=== PATIENT | male | born 1985 | race African-American/Black ===

== ENCOUNTER 2018-08-22 08:54 | Emergency (ER) | payer SELFPAY ==
[~2018-08-22] VITALS: Ht 180.3 cm; Wt 117.8 kg
[2018-08-22 09:01] VITALS: BP 190/95; PULSE 65; RESP 18; Ht 180.3 cm; Wt 117.8 kg
[2018-08-22] MEDS ORDERED: ONDANSETRON (ODT) 4 MG TAB ODT STA (09:20)
[2018-08-22] MEDS ORDERED: HYDROCODONE/APAP (5/325) TAB PO ONE (09:30)
[2018-08-22] MEDS ORDERED: NAPR-985 PO (10:11)
[2018-08-22] MEDS ORDERED: HYDR-4011 PO (10:11)
--- NOTE | 2018-08-22 10:25 | ERD ---
ER Documentation Chief Complaint Chief Complaint left shoulder pain s/p fall playing football, decrease ROM HPI 33-year-old male presenting with pain to left shoulder. Yesterday patient was playing football and he fell on his left shoulder. Hurts to move at the shoulder and has normal movement to his elbow and lower extremity. Patient is right-hand dominant. Denies any numbness or tingling to his upper left extremity. He has taken Tylenol for pain relief. medical history asthma. NKDA. Surgical history denies. Social history denies ROS All systems reviewed and are negative except as per history of present illness. Medications Home Meds Active Scripts Naproxen* (Naprosyn*) 500 Mg Tablet, 500 MG PO BID PRN for PAIN AND/OR INFLAMMATION, #30 TAB Prov:CHI LACEY PA-C 08/22/18 Hydrocodone/Acetaminophen (Transfer 5-325 Tablet) 1 Each Tablet, 1 TAB PO Q6H PRN f or PAIN, #7 TAB Prov:CHI LACEY PA-C 08/22/18 Allergies Allergies: Coded Allergies: No Known Allergy (Unverified , 08/22/18) PMhx/Soc Medical and Surgical Hx: pt denies Surgical Hx Hx Respiratory Disorders: Yes (ASTHMA) Hx Miscellaneous Medical Probl: Yes Hx Alcohol Use: No Hx Substance Use: No Hx Tobacco Use: No Smoking Status: Never smoker FmHx Family History: No diabetes, No coronary disease, No other Physical Exam Vitals Vital Signs Date Temp Pulse Resp B/P (MAP) Pulse Ox O2 O2 Flow FiO2 Time Delivery Rate 08/22/18 97.2 65 18 190/95 99 09:01 (126) Physical Exam GENERAL: The patient is well-appearing, well-nourished, in no acute distress CHEST: Clear to auscultation bilaterally. There are no rales, wheezes or rhonchi. HEART: Regular rate and rhythm. No murmurs, clicks, rubs or gallops. EXTREMITIES: Tender to palpation over the left shoulder with no obvious deformity. No crepitus and compartments soft. Distal pulses intact. Patient has limited range of motion secondary to pain. NEUROLOGIC: Alert and oriented. Cranial nerves II through XII intact. Motor strength in all 4 extremities with 5 out of 5 strength. Sensation grossly intact. Normal speech and gait. SKIN: There is no apparent rash or petechiae. The skin is warm and dry. Results 24 hrs Current Medications Medications Dose Sig/Jason Start Time Status Last (Trade) Ordered Route PRN Stop Time Admin Dose Reason Admin 1 tab ONCE ONCE 08/22/18 DC 08/22/18 Acetaminophen PO 09:30 08/22/18 09:27 / 09:31 Hydrocodone Bitart (Transfer (5/325)) Ondansetron 4 mg ONCE STAT 08/22/18 DC 08/22/18 HCl (Zofran ODT 09:20 08/22/18 09:27 Odt) 09:22 Procedures/MDM DIAGNOSTIC IMAGING REPORT Patient: ANGELO CHAVEZ : 1985 Age: 33 Sex: M MR #: [id number] DOS: 08/22/18919 Ordering MD: MUNIRA LACEY PA-C Location: [facility] Room/Bed: PROCEDURE: XR left clavicle. CLINICAL INDICATION: Pain TECHNIQUE: AP and AP lordotic views of the left clavicle were performed. COMPARISON: None. FINDINGS: There is normal osseous mineralization and alignment. No fracture or osseous lesion is identified. There are normal joints without evidence of arthritis or dislocation. The soft tissues are unremarkable. RPTAT: AA IMPRESSION: Unremarkable left clavicle. DIAGNOSTIC IMAGING REPORT Patient: ANGELO CHAVEZ : 1985 Age: 33 Sex: M MR #: [id number] DOS: 08/22/18919 Ordering MD: MUNIRA LACEY PA-C Location: [facility] Room/Bed: PROCEDURE: XR left shoulder. CLINICAL INDICATION: Pain TECHNIQUE: AP, Internal and external rotation views of the left shoulder were performed. COMPARISON: None. FINDINGS: There is normal osseous mineralization and alignment. No acute fracture or osseous lesion is identified. There are normal joints without evidence of arthritis or dislocation. The soft tissues are unremarkable. RPTAT: AA IMPRESSION: Unremarkable left shoulder. ER Course: Sling given in ED. Patient is neuro intact pre-and post splint application. Transfer given for pain relief. MDM: 33-year-old male presenting for left upper extremity pain. Exam is non- concerning and x-rays are within normal limits patient is recommended to follow- up with primary doctor and orthopedist. Patient is told if symptoms change or worsen to return immediately to the ER. Patient is recommended to follow-up with primary care. All questions answered at discharge Departure Diagnosis: Primary Impression: Shoulder pain Condition: Stable Patient Instructions: Shoulder Contusion Referrals: CLIFTON MEDELLIN MD [facility] Hours: Mon-Fri 9:00 AM - 5:00 PM Additional Instructions: FOLLOW UP WITH YOUR PRIMARY CARE PHYSICIAN TOMORROW.Return to this facility if you are not improving as expected. CHI LACEY PA-C Aug 22, 2018 10:25
== END 2018-08-22 10:33 | disposition home or self-care (01) ==
LOC: FTE 08:54
DX: M25.512 Pain in left shoulder (principal); J45.909 Unspecified asthma, uncomplicated
CPT/HCPCS: 73000; 73030

== ENCOUNTER 2018-09-22 11:16 | Emergency (ER) | payer SELFPAY ==
[~2018-09-22] VITALS: Ht 177.8 cm; Wt 116.2 kg
[~2018-09-22 11:16] MED LIST: HYDR-4011 PO; NAPR-985 PO
[2018-09-22 11:20] VITALS: BP 168/89; PULSE 69; RESP 18; Ht 177.8 cm; Wt 116.2 kg
[2018-09-22] MEDS ORDERED: SOD CHLORIDE 0.9% 1,000 ML IV STA (11:34)
[2018-09-22] MEDS ORDERED: BELLADONNA/PHENOBARBITAL TAB PO STA (11:34)
[2018-09-22] MEDS ORDERED: morphine 4 MG/ML VIAL IV STA (11:34)
[2018-09-22] MEDS ORDERED: ONDANSETRON 4 MG INJ IV STA (11:34)
[2018-09-22] MEDS ORDERED: LIDOCAINE/MYLANTA 40 ML BTL PO STA (11:34)
--- NOTE | 2018-09-22 11:59 | ERD ---
ER Documentation Chief Complaint Chief Complaint Pt with diffused AP and some blood in vomit X 2 days. HPI 33-year-old male presents with 3-day complaint of abdominal pain and vomiting. States that there has been some blood in the vomit and the vomitus color has been pink. Denies having any history of abdominal problems including ulcers. States that the pain is currently 8 out of 10 in pain and is diffusely spread out over his abdomen. Took ibuprofen at 5 AM today. States that he has been able to hold down liquids. denies any dysuria, hematuria, hematochezia, diarrhea, fevers, chills. ROS All systems reviewed and are negative except as per history of present illness. Medications Home Meds Active Scripts Polyethylene Glycol* (Miralax*) 17 Gm Powd.pack, 17 GM PO DAILY for constipation, #30 PACKET Prov:RYAN HICKS 09/22/18 Acetaminophen* (Tylophen*) 500 Mg Capsule, 2 CAP PO Q8H PRN for PAIN AND OR ELEVATED TEMP, #20 CAP Prov:RYAN HICKS 09/22/18 Famotidine* (Pepcid*) 20 Mg Tablet, 20 MG PO BID for gastritis for 7 Days, TAB Prov:RYAN HICKS 09/22/18 Naproxen* (Naprosyn*) 500 Mg Tablet, 500 MG PO BID PRN for PAIN AND/OR INFLAMMATION, #30 TAB Prov:CHI LACEY PA-C 08/22/18 Hydrocodone/Acetaminophen ([place] 5-325 Tablet) 1 Each Tablet, 1 TAB PO Q6H PRN for PAIN, #7 TAB Prov:CHI LACEY PA-C 08/22/18 Allergies Allergies: Coded Allergies: No Known Allergy (Unverified , 08/22/18) PMhx/Soc Hx Respiratory Disorders: Yes (ASTHMA) Hx Miscellaneous Medical Probl: Yes Hx Alcohol Use: No Hx Substance Use: No Hx Tobacco Use: No FmHx Family History: No diabetes, No coronary disease, No other Physical Exam Vitals Vital Signs Date Temp Pulse Resp B/P (MAP) Pulse Ox O2 O2 Flow FiO2 Time Delivery Rate 09/22/18 98.2 69 18 168/89 95 11:20 (115) Physical Exam Const: No acute distress Head: Atraumatic Eyes: Normal Conjunctiva ENT: Normal External Ears, Nose and Mouth. Neck: Full range of motion. No meningismus. Resp: Clear to auscultation bilaterally Cardio: Regular rate and rhythm, no murmurs Abd: Abdomen is diffusely tender to palpation in all 4 quadrants with no guarding or rigidity. Skin: No petechiae or rashes Back: No midline or flank tenderness Ext: No cyanosis, or edema Neur: Awake and alert Psych: Normal Mood and Affect Result Diagram: 09/22/18 1140 09/22/18 1140 Results 24 hrs Laboratory Tests Test 09/22/18 11:40 White Blood Count 4.5 10^3/ul Red Blood Count 4.87 10^6/ul Hemoglobin 13.7 g/dl Hematocrit 41.7 % Mean Corpuscular Volume 85.6 fl Mean Corpuscular Hemoglobin 28.1 pg Mean Corpuscular Hemoglobin Concent 32.9 g/dl Red Cell Distribution Width 12.8 % Platelet Count 285 10^3/UL Mean Platelet Volume 10.8 fl Immature Granulocytes % 0.200 % Neutrophils % 30.8 % Lymphocytes % 49.4 % Monocytes % 9.8 % Eosinophils % 9.1 % Basophils % 0.7 % Nucleated Red Blood Cells % 0.0 /100WBC Immature Granulocytes # 0.010 10^3/ul Neutrophils # 1.4 10^3/ul Lymphocytes # 2.2 10^3/ul Monocytes # 0.4 10^3/ul Eosinophils # 0.4 10^3/ul Basophils # 0.0 10^3/ul Nucleated Red Blood Cells # 0.0 10^3/ul Urine Color YELLOW Urine Clarity CLEAR Urine pH 6.0 Urine Specific [place] 1.027 Urine Ketones NEGATIVE mg/dL Urine Nitrite NEGATIVE mg/dL Urine Bilirubin NEGATIVE mg/dL Urine Urobilinogen 1+ mg/dL Urine Leukocyte Esterase NEGATIVE [place]ul Urine Hemoglobin NEGATIVE mg/dL Urine Glucose NEGATIVE mg/dL Urine Total Protein NEGATIVE mg/dl Sodium Level 141 mmol/L Potassium Level 4.4 mmol/L Chloride Level 105 mmol/L Carbon Dioxide Level 29 mmol/L Anion Gap 7 Blood Urea Nitrogen 19 mg/dl Creatinine 1.02 mg/dl Est Glomerular Filtrat Rate mL/min > 60 mL/min Glucose Level 98 mg/dl Calcium Level 9.5 mg/dl Total Bilirubin 0.4 mg/dl Direct Bilirubin 0.00 mg/dl Indirect Bilirubin 0.4 mg/dl Aspartate Amino Transf (AST/SGOT) 27 IU/L Alanine Aminotransferase (ALT/SGPT) 38 IU/L Alkaline Phosphatase 62 IU/L Total Protein 7.4 g/dl Albumin 4.3 g/dl Globulin 3.10 g/dl Albumin/Globulin Ratio 1.38 Lipase 44 U/L Current Medications Medications Dose Sig/Jason Start Time Status Last (Trade) Ordered Route PRN Stop Time Admin Dose Reason Admin Sodium 1,000 ml @ Q1H STAT 09/22/18 DC 09/22/18 Chloride 1,000 mls/hr IV 11:34 09/22/18 12:08 12:33 Ondansetron 4 mg ONCE STAT 09/22/18 DC 09/22/18 HCl (Zofran IV 11:34 09/22/18 12:07 Inj) 11:38 40 ml ONCE STAT 09/22/18 DC 09/22/18 Miscellaneous PO 11:34 09/22/18 12:08 Medication 11:38 (Gi Cocktail (2)) Belladonna/ 2 tab ONCE STAT 09/22/18 DC 09/22/18 Phenobarbital PO 11:34 09/22/18 12:07 () 11:38 Morphine 4 mg ONCE STAT 09/22/18 DC 09/22/18 Sulfate IV 11:34 09/22/18 12:07 (morphine) 11:38 IV Flush 10 ml STK-MED 09/22/18 DC (NS 10 ml) ONCE .ROUTE 12:17 09/22/18 12:18 Sodium 100 ml @ ud STK-MED 09/22/18 DC Chloride ONCE .ROUTE 12:17 09/22/18 12:18 Iohexol 150 ml STK-MED 09/22/18 DC (Omnipaque ONCE .ROUTE 12:17 09/22/18 300mg/ ml) 12:18 17 gm ONCE ONCE 09/22/18 DC 09/22/18 Polyethylene PO 14:00 09/22/18 14:24 Glycol 14:01 (Miralax) Procedures/MDM Patient: ANGELO CHAVEZ : 1985 Age: 33 Sex: M MR #: [id number] DOS: 09/22/18 1134 Ordering MD: RYAN HICKS Location: [facility] Room/Bed: PROCEDURE: CT ABDOMEN AND PELVIS WITH IV CONTRAST. CLINICAL INDICATION: Abdominal pain TECHNIQUE: CT scan of the abdomen and pelvis with contrast was performed on a multidetector high-resolution CT scanner following the use of IV contrast. 100 cc Omnipaque-300 was administered. Coronal and sagittal reformatted images were obtained from the axial source images. Images were reviewed on a high-resolution PACS workstation. The total exam CTDI equals 23.3 mGy and the total exam DLP equals 1621.2 mGy-cm. One or more of the following dose reduction techniques were used: Automated exposure control. Adjustment of the mA and/or kV according to patient size. Use of iterative reconstruction technique. DICOM images are available. COMPARISON: None FINDINGS: CT abdomen: The lung bases are clear. The heart size is within normal limits. There is no significant pericardial effusion. Hepatic morphology is within normal limits. No gross contour deforming masses. The gallbladder is within normal limits. No evidence of intrahepatic or extrahepatic biliary dilatation. The spleen and pancreas are within normal limits. Both adrenal glands are within normal limits. Both kidneys are in normal anatomic position. No evidence of obstruction or hydronephrosis. No gross renal/ureteric calculi. The visualized GI tract demonstrate normal caliber loops of small and large bowel. No evidence of bowel obstruction. The appendix is within normal limits. The aorta is unremarkable. No significant retroperitoneal lymphadenopathy. CT pelvis: Bladder is identified. Prostate is normal size. Rectosigmoid colon demonstrates stool. No significant free fluid. No significant pelvic lymphadenopathy. The visualized osseous structures appears to be within normal limits. There is grade 1 retrolisthesis of L5-S1. IMPRESSION: 1. No evidence of acute intra-abdominal/pelvic inflammatory process. No evidence of bowel obstruction. The appendix is within normal limits. Stool filled loops of large bowel suggestive of constipation. 2. No gross renal/ureteric calculi. No evidence of obstructive uropathy. 3. No evidence of free fluid or free air. No gross focal fluid collections. RPTAT: AAPP Physician Vidal Date Time Electronically viewed and signed by Physician Vidal on 09/22/2018 13:21 JL/ CC: RYAN HICKS [id number] MDM: Given the diffuse tenderness found on patient exam as well as complaint of vomiting up blood, decision to do CT was ordered. Results within normal limits. Patient advised to follow-up with GI for further testing. At this point patient will be treated with Pepcid and MiraLAX for possible constipation as seen on CT. Have low suspicion for bowel obstruction, cholecystitis, appendicitis, intra-abdominal abscess, or any other emergent condition. Patient discharged with strict ER precautions. Patient advised to follow up with PMD. All questions answered at discharge. Departure Diagnosis: Primary Impression: Abdominal pain Abdominal location: generalized Qualified Codes: R10.84 - Generalized abdominal pain Additional Impression: Constipation Constipation type: unspecified constipation type Qualified Codes: K59.00 - Constipation, unspecified Condition: Stable RYAN HICKS September 22, 2018 11:59
[2018-09-22] MEDS ORDERED: IOHEXOL 300MG/ML 150 ML BTL ONE (12:17)
[2018-09-22] MEDS ORDERED: SOD CHLORIDE 0.9% 100 ML ONE (12:17)
[2018-09-22] MEDS ORDERED: ACET500C5 PO (13:48)
[2018-09-22] MEDS ORDERED: POLY17PO6 PO (13:48)
[2018-09-22] MEDS ORDERED: FAMO-96 PO (13:48)
[2018-09-22] MEDS ORDERED: POLYETHYLENE GLYCOL 17 GM PACKET PO ONE (14:00)
== END 2018-09-22 14:32 | disposition home or self-care (01) ==
LOC: FTE 11:16
DX: K59.00 Constipation, unspecified (principal)
CPT/HCPCS: 36415; 74177; 80053; 81003; 83690; 85025; 96361; 96374; 96375; 99285; J2270; J2405; J7030; Q9967